=== PATIENT | male | born 1965 | race Caucasian/White ===

== ENCOUNTER 2016-07-04 07:58 | Emergency (ER) | payer OTHER ==
--- NOTE | 2016-07-04 08:52 | ED CLINICAL REPORT ---
Clinical Report - Physicians/Mid Levels [facility] [address] [address] 07/04/2016 8:03 Patient: GERMAN MCKINLEY Time Seen: 08:27. Arrived- By private vehicle. Historian- patient. HISTORY OF PRESENT ILLNESS Chief Complaint: BACK PAIN. It is described as being severe and in the area of the lower lumbar spine and right gluteus and radiating to the right hip, thigh, knee, calf and foot and right buttock. The quality is noted to be "pain". Modifying factors- worsened by rotation or bending over. Onset- several days ago and it is still present. It was gradual in onset and has been constant. No bladder dysfunction, bowel dysfunction or motor loss. Mild sensory loss involving the right foot (old). Patient notes an injury. Mechanism of injury- he was lifting (Mr. Mckinley states that he is moving.). Occurred at home. No other injury. Similar symptoms previously: ( Prior L and I injury many years ago.). Recent medical care: Not recently seen/assessed. REVIEW OF SYSTEMS No fever, chills, cough, difficulty breathing or chest pain. No abdominal pain. PAST HISTORY PCP: None Illness: Back pain, Ops: None Hosp: None. ADDITIONAL NOTES The nursing notes have been reviewed. PHYSICAL EXAM Vital Signs: 07/04/2016 08:51 Pain level now: 06/28. 07/04/2016 08:50 BP: 122/83. HR: 78. RR: 14. O2 saturation: 99%. Temp: 98.2 F. 07/04/2016 08:09 BP: 119/83. HR: 100. RR: 18. O2 saturation: 99%. Temp: 97.9 F. Pain level now: 10. Appearance: Alert. Patient in moderate distress. (Sits quite stiffly). HEENT: Normal external inspection. ENT: Pharynx normal. Respiratory: No respiratory distress. Breath sounds normal. Abdomen: Soft and nontender. Back: No vertebral point tenderness or soft tissue tenderness. Extremities: Extremities exhibit normal ROM. Extremities nontender. Neuro: No alteration in mental status. No motor deficit. Sensory deficit present. (quite mild. Not new). Altered sensation to light touch on the right leg. Straight leg raising: positive on the right at 45 degrees and negative on the left. Reflex exam: right patellar 2+, left patellar 2+, right Achilles 1+ and left Achilles 1+. No Babinski reflex. PROGRESS AND PROCEDURES Course of Care: This could be an HNP. There is no neurosurgical emergency. The first job is pain control and establishing primary care. Disposition: Discharged. CLINICAL IMPRESSION Lumbar strain. Possible acute right sided lumbar radiculopathy. INSTRUCTIONS No driving or operating machinery. (ESTABLISH PRIMARY CARE). Prescription Medications: Hydrocodone/APAP 5mg / 325mg: take 1-2 orally every 4 hours as needed for pain. Dispense twenty (20). No refill. Ibuprofen. Dispense thirty (30). (600 MG THREE TIMES A DAY.) Robaxin 750 mg: take 1-2 orally every 6 hours as needed for muscle spasm or pain. Dispense thirty (30). No refill. Substitution is permissible. Understanding of the discharge instructions verbalized by patient. Follow-up with: [facility], , , [address], , [place], [address] Follow up. Call for an appointment. Reason for referral: ESTABLISH PRIMARY CARE. (Electronically signed by Grady Reyes MD 07/05/2016 13:22)
--- NOTE | 2016-07-04 08:52 | ED ORDER SUMMARY ---
..... Patient: GERMAN MCKINLEY OrderSheet [facility] VisitID: [id number] [address] [place] [address] 50y, M Registration Date/Time: 07/04/2016 ORDER SHEET Weight: 90.7 kg (stated) Allergies: None GENERAL ORDERS: MEDICATION ORDERS: Hydrocodone-APAP PO 5/325 mg 2 TABS (NOW) (08:44 07/04/2016 Radha MARQUIS) (Ack 8:45 JBoardley R.N.) (8:50 JBoardley R.N.) Valium PO 5 mg (NOW) (08:44 07/04/2016 Radha MARQUIS) (Ack 8:45 JBoardley R.N.) (8:50 JBoardley R.N.) IV FLUIDS: ORDER SHEET NOTES: [Electronically signed by Micheal Anders R.N. (08:56 07/04/2016)] [Electronically signed by Grady Reyes MD (13:22 07/05/2016)] [Electronically locked/signed by Micheal Anders R.N. (08:56 07/04/2016)]
--- NOTE | 2016-07-04 08:52 | ED NURSING NOTES ---
Clinical Report - Nurses [facility] [address] [place] [address] 07/04/2016 8:03 [id number] TRI[facility] Triage time 08:09. Acuity: LEVEL 4. Chief Complaint: BACK PAIN. 08:10 07/04/16. 08:10 07/04/16. Alert. ( Pt states he has an exacerbation of his back pain from an injury 5 years ago.). SEPSIS SCREEN: Sepsis Screen. Negative (no infection suspected/documented). LENA COMA SCORE: [place] Coma Scale: 15- eyes open spontaneously (4); best verbal response- oriented x 4 (5); best motor response- obeys commands (6). --08:12 Micheal Anders R.N. 08:09 07/04/16. BP: 119/83. HR: 100. RR: 18. O2 saturation: 99% on room air. Temp: 97.9 F. Pain level now: 10/29. --08:12 Micheal Anders R.N. Weight: 90.7 kg stated. Height/Length: 70 inches Per Patient. BMI: 28.7. --08:10 Micheal Anders R.N. Medications None. --08:11 Micheal Anders R.N. Allergies None. --08:11 Micheal Anders R.N. History Arrived by private vehicle. Historian: patient. Unaccompanied. Primary physician (NONE). 08:10 07/04/16. No history of recent trauma. 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 PAST MEDICAL HX: Tetanus status: up-to-date. Immunizations: up-to-date. SOCIAL HX: Current every day light tobacco smoker (cigarette)- less than 1/2 a pack per day. Occasional alcohol use. No drug use. No infectious disease exposure. ABUSE ASSESSMENT: No report of abuse. FALL RISK ASSESSMENT: Fall risk assessment completed. No fall risk identified. NUTRITIONAL RISK ASSESSMENT: The nutritional risk assessment revealed no deficiencies. FUNCTIONAL ASSESSMENT: Functional assessment: no impairments noted. LEARNING NEEDS ASSESSMENT: The learning needs assessment revealed no barriers. SKIN INTEGRITY ASSESSMENT: Skin integrity risk assessment completed. No skin integrity risk identified. --08:12 Micheal Anders R.N. PROBLEMS: Back Pain. --08:12 Micheal Anders R.N. ADDITIONAL SURGERIES: no known surgeries. Assessment 08:10 07/04/16. --08:12 Micheal Anders R.N. Interventions 08:10 07/04/16. 08:07/04/16. ID and allergy band on patient. To treatment room. --08:12 Micheal Anders R.N. PHYSICAL ASSESSMENT 08:12 07/04/16. Ambulatory to room. GENERAL / NEURO / PSYCH: Alert. Oriented X 4. Appears in pain. RESPIRATORY: Respirations not labored. CVS: Capillary refill less than 2 seconds. BACK: Vertebral point tenderness over the lumbar spine. --08:12 Micheal Anders R.N. late entry -08:12. GI / : Patient is not incontinent of urine. Patient is not incontinent of stool. --08:40 Micheal Anders R.N. NURSING PROGRESS NOTES 08:13 07/04/16. The plan of care for this patient has been created. Head of bed elevated. Reassurance given. Two patient identifiers checked. Call light placed in reach. Side rails up x 2. Bed placed in lowest position. Brakes of bed on. --08:13 Micheal Anders R.N. 08:13 07/04/16. Patient ready for evaluation- chart flagged and notification provided. --08:13 Micheal Anders R.N. 08:45 07/04/2016 Hydrocodone-APAP (Hydrocodone-Acetaminophen) PO 5/325 mg Tablets 2 tab given. Allergies verified, confirmed 5 rights and sedative warning given to the patient. --08:50 Micheal Anders R.N. 08:45 07/04/2016 Valium (Diazepam) PO 5 mg given. Allergies verified, confirmed 5 rights and sedative warning given to the patient. --08:50 Micheal Anders R.N. 08:56 07/04/16. ( Head Of Business Development here, driving pt home). --08:56 Micheal Anders R.N. DISPOSITION / DISCHARGE 08:50 07/04/16. Condition at departure: improved. The goals identified in the patient's plan of care were met. No learning barriers present. Discharge instructions provided and reviewed with the patient. Reviewed warnings. Reviewed medication(s). Treatments reviewed. Patient verbalized understanding. Written instructions provided in [place]. The patient was discharged by the physician. He was discharged home and accompanied by family and barge master. He left the Emergency Department ambulatory and via private vehicle. Head Of Business Development driving. FALL RISK ASSESSMENT: Fall risk assessment completed. No fall risk identified. --08:51 Micheal Anders R.N. 08:50 07/04/16. BP: 122/83. HR: 78. RR: 14. O2 saturation: 99% on room air. Temp: 98.2 F (oral). --08:51 Micheal Anders R.N. 08:51 07/04/16. Pain level now: 5/10. --08:51 Micheal Anders R.N. Departure time: 08:51. --08:52 Micheal Anders R.N. Locked/Released at 07/04/2016 8:56 by Micheal Anders R.N.
--- NOTE | 2016-07-04 08:52 | ED CLINICAL REPORT ---
Clinical Report - Physicians/Mid Levels [facility] [address] [place] [address] 07/04/2016 8:03 Patient: GERMAN MCKINLEY Time Seen: 08:27. Arrived- By private vehicle. Historian- patient. HISTORY OF PRESENT ILLNESS Chief Complaint: BACK PAIN. It is described as being severe and in the area of the lower lumbar spine and right gluteus and radiating to the right hip, thigh, knee, calf and foot and right buttock. The quality is noted to be "pain". Modifying factors- worsened by rotation or bending over. Onset- several days ago and it is still present. It was gradual in onset and has been constant. No bladder dysfunction, bowel dysfunction or motor loss. Mild sensory loss involving the right foot (old). Patient notes an injury. Mechanism of injury- he was lifting (Mr. Mckinley states that he is moving.). Occurred at home. No other injury. Similar symptoms previously: ( Prior L and I injury many years ago.). Recent medical care: Not recently seen/assessed. REVIEW OF SYSTEMS No fever, chills, cough, difficulty breathing or chest pain. No abdominal pain. PAST HISTORY PCP: None Illness: Back pain, Ops: None Hosp: None. ADDITIONAL NOTES The nursing notes have been reviewed. PHYSICAL EXAM Vital Signs: 07/04/2016 08:51 Pain level now: 06/28. 07/04/2016 08:50 BP: 122/83. HR: 78. RR: 14. O2 saturation: 99%. Temp: 98.2 F. 07/04/2016 08:09 BP: 119/83. HR: 100. RR: 18. O2 saturation: 99%. Temp: 97.9 F. Pain level now: 10. Appearance: Alert. Patient in moderate distress. (Sits quite stiffly). HEENT: Normal external inspection. ENT: Pharynx normal. Respiratory: No respiratory distress. Breath sounds normal. Abdomen: Soft and nontender. Back: No vertebral point tenderness or soft tissue tenderness. Extremities: Extremities exhibit normal ROM. Extremities nontender. Neuro: No alteration in mental status. No motor deficit. Sensory deficit present. (quite mild. Not new). Altered sensation to light touch on the right leg. Straight leg raising: positive on the right at 45 degrees and negative on the left. Reflex exam: right patellar 2+, left patellar 2+, right Achilles 1+ and left Achilles 1+. No Babinski reflex. PROGRESS AND PROCEDURES Course of Care: This could be an HNP. There is no neurosurgical emergency. The first job is pain control and establishing primary care. Disposition: Discharged. CLINICAL IMPRESSION Lumbar strain. Possible acute right sided lumbar radiculopathy. INSTRUCTIONS No driving or operating machinery. (ESTABLISH PRIMARY CARE). Prescription Medications: Hydrocodone/APAP 5mg / 325mg: take 1-2 orally every 4 hours as needed for pain. Dispense twenty (20). No refill. Ibuprofen. Dispense thirty (30). (600 MG THREE TIMES A DAY.) Robaxin 750 mg: take 1-2 orally every 6 hours as needed for muscle spasm or pain. Dispense thirty (30). No refill. Substitution is permissible. Understanding of the discharge instructions verbalized by patient. Follow-up with: [facility], , , [address], , [place], [address] Follow up. Call for an appointment. Reason for referral: ESTABLISH PRIMARY CARE. (Electronically signed by Grady Reyes MD 07/05/2016 13:22)
--- NOTE | 2016-07-04 08:52 | ED NURSING NOTES ---
Clinical Report - Nurses [facility] [address] [place] [address] 07/04/2016 8:03 [id number] TRI[facility] Triage time 08:09. Acuity: LEVEL 4. Chief Complaint: BACK PAIN. 08:10 07/04/16. 08:10 07/04/16. Alert. ( Pt states he has an exacerbation of his back pain from an injury 5 years ago.). SEPSIS SCREEN: Sepsis Screen. Negative (no infection suspected/documented). LENA COMA SCORE: [place] Coma Scale: 15- eyes open spontaneously (4); best verbal response- oriented x 4 (5); best motor response- obeys commands (6). --08:12 Micheal Anders R.N. 08:09 07/04/16. BP: 119/83. HR: 100. RR: 18. O2 saturation: 99% on room air. Temp: 97.9 F. Pain level now: 10/29. --08:12 Micheal Anders R.N. Weight: 90.7 kg stated. Height/Length: 70 inches Per Patient. BMI: 28.7. --08:10 Micheal Anders R.N. Medications None. --08:11 Micheal Anders R.N. Allergies None. --08:11 Micheal Anders R.N. History Arrived by private vehicle. Historian: patient. Unaccompanied. Primary physician (NONE). 08:10 07/04/16. No history of recent trauma. 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 PAST MEDICAL HX: Tetanus status: up-to-date. Immunizations: up-to-date. SOCIAL HX: Current every day light tobacco smoker (cigarette)- less than 1/2 a pack per day. Occasional alcohol use. No drug use. No infectious disease exposure. ABUSE ASSESSMENT: No report of abuse. FALL RISK ASSESSMENT: Fall risk assessment completed. No fall risk identified. NUTRITIONAL RISK ASSESSMENT: The nutritional risk assessment revealed no deficiencies. FUNCTIONAL ASSESSMENT: Functional assessment: no impairments noted. LEARNING NEEDS ASSESSMENT: The learning needs assessment revealed no barriers. SKIN INTEGRITY ASSESSMENT: Skin integrity risk assessment completed. No skin integrity risk identified. --08:12 Micheal Anders R.N. PROBLEMS: Back Pain. --08:12 Micheal Anders R.N. ADDITIONAL SURGERIES: no known surgeries. Assessment 08:10 07/04/16. --08:12 Micheal Anders R.N. Interventions 08:10 07/04/16. 08:07/04/16. ID and allergy band on patient. To treatment room. --08:12 Micheal Anders R.N. PHYSICAL ASSESSMENT 08:12 07/04/16. Ambulatory to room. GENERAL / NEURO / PSYCH: Alert. Oriented X 4. Appears in pain. RESPIRATORY: Respirations not labored. CVS: Capillary refill less than 2 seconds. BACK: Vertebral point tenderness over the lumbar spine. --08:12 Micheal Anders R.N. late entry -08:12. GI / : Patient is not incontinent of urine. Patient is not incontinent of stool. --08:40 Micheal Anders R.N. NURSING PROGRESS NOTES 08:13 07/04/16. The plan of care for this patient has been created. Head of bed elevated. Reassurance given. Two patient identifiers checked. Call light placed in reach. Side rails up x 2. Bed placed in lowest position. Brakes of bed on. --08:13 Micheal Anders R.N. 08:13 07/04/16. Patient ready for evaluation- chart flagged and notification provided. --08:13 Micheal Anders R.N. 08:45 07/04/2016 Hydrocodone-APAP (Hydrocodone-Acetaminophen) PO 5/325 mg Tablets 2 tab given. Allergies verified, confirmed 5 rights and sedative warning given to the patient. --08:50 Micheal Anders R.N. 08:45 07/04/2016 Valium (Diazepam) PO 5 mg given. Allergies verified, confirmed 5 rights and sedative warning given to the patient. --08:50 Micheal Anders R.N. 08:56 07/04/16. ( Component Prep Operator here, driving pt home). --08:56 Micheal Anders R.N. DISPOSITION / DISCHARGE 08:50 07/04/16. Condition at departure: improved. The goals identified in the patient's plan of care were met. No learning barriers present. Discharge instructions provided and reviewed with the patient. Reviewed warnings. Reviewed medication(s). Treatments reviewed. Patient verbalized understanding. Written instructions provided in [place]. The patient was discharged by the physician. He was discharged home and accompanied by family and seaweed harvester. He left the Emergency Department ambulatory and via private vehicle. Component Prep Operator driving. FALL RISK ASSESSMENT: Fall risk assessment completed. No fall risk identified. --08:51 Micheal Anders R.N. 08:50 07/04/16. BP: 122/83. HR: 78. RR: 14. O2 saturation: 99% on room air. Temp: 98.2 F (oral). --08:51 Micheal Anders R.N. 08:51 07/04/16. Pain level now: 5/10. --08:51 Micheal Anders R.N. Departure time: 08:51. --08:52 Micheal Anders R.N. Locked/Released at 07/04/2016 8:56 by Micheal Anders R.N.
--- NOTE | 2016-07-04 08:52 | ED ORDER SUMMARY ---
..... Patient: GERMAN MCKINLEY OrderSheet [facility] VisitID: [id number] [address] [place] [address] 50y, M Registration Date/Time: 07/04/2016 ORDER SHEET Weight: 90.7 kg (stated) Allergies: None GENERAL ORDERS: MEDICATION ORDERS: Hydrocodone-APAP PO 5/325 mg 2 TABS (NOW) (08:44 07/04/2016 Radha MARQUIS) (Ack 8:45 JBoardley R.N.) (8:50 JBoardley R.N.) Valium PO 5 mg (NOW) (08:44 07/04/2016 Radha MARQUIS) (Ack 8:45 JBoardley R.N.) (8:50 JBoardley R.N.) IV FLUIDS: ORDER SHEET NOTES: [Electronically signed by Micheal Anders R.N. (08:56 07/04/2016)] [Electronically signed by Grady Reyes MD (13:22 07/05/2016)] [Electronically locked/signed by Micheal Anders R.N. (08:56 07/04/2016)]
--- NOTE | 2016-07-05 13:22 | ED MED RECONCILIATION SUMMARY ---
Patient: GERMAN MCKINLEY Medication Reconciliation Report [facility] VisitID: [id number] [address] [place] [address] 50y, M Registration Date/Time: 07/04/2016 Weight: 90.7 kg Height/Length: 70 in. BMI: 28.7 ALLERGIES: None The patient's Home Medications are listed below: NONE. The source(s) of the original Home Medication information: Not obtained. The following Medications were given to the patient in the Emergency Department: Hydrocodone-APAP [PO] PO 2 tab, administered: 07/04/2016 8:45:00 AM Valium [PO] PO 5 mg, administered: 07/04/2016 8:45:00 AM The following Medications were prescribed to the patient: Hydrocodone/APAP 5mg / 325mg: take 1-2 orally every 4 hours as needed for pain. Dispense twenty (20). No refill. -- Grady Reyes MD Ibuprofen. Dispense thirty (30).(600 MG THREE TIMES A DAY.) -- Grady Reyes MD Robaxin 750 mg: take 1-2 orally every 6 hours as needed for muscle spasm or pain. Dispense thirty (30). No refill. Substitution is permissible. -- Grady Reyes MD
--- NOTE | 2016-07-05 13:22 | ED MAR SUMMARY ---
..... Medication Administration Record [facility] [address] [place] [address] Patient: GERMAN MCKINLEY Visit ID: [id number] 50y, M Weight: 90.7 kg Height/Length: 70 in BMI: 28.7 ALLERGIES: None Given 08:07/04/2016 Micheal Anders R.N. Medication Administered: HYDROCODONE-APAP [PO] (HYDROCODONE-ACETAMINOPHEN), Dose: 2 tab 5/325 mg Tablets PO. Medication Ordered: Hydrocodone-APAP PO 5/325 mg 2 TABS (NOW). Given 08:07/04/2016 Micheal Anders R.N. Medication Administered: VALIUM [PO] (DIAZEPAM), Dose: 5 mg PO. Medication Ordered: Valium PO 5 mg (NOW).
--- NOTE | 2016-07-05 13:22 | ED DISCHARGE INSTRUCTIONS ---
Patient: GERMAN MCKINLEY General Instructions [facility] VisitID: [id number] [address] [place] [address] 50y, M Registration Date/Time: 07/04/2016 Lumbar strain. INSTRUCTIONS No driving or operating machinery. ([facility]). Prescription Medications: Hydrocodone/APAP 5mg / 325mg: take 1-2 orally every 4 hours as needed for pain. Dispense twenty (20). No refill. Ibuprofen. Dispense thirty (30). (600 MG THREE TIMES A DAY.) Robaxin 750 mg: take 1-2 orally every 6 hours as needed for muscle spasm or pain. Dispense thirty (30). No refill. Substitution is permissible. Understanding of the discharge instructions verbalized by patient. Follow-up with: [facility], , , [address], [place], [id number] Follow up. Call for an appointment. Reason for referral: [facility] PRIMARY CARE. ADDITIONAL INFORMATION Sciatica Sciatica ("Lumbar Radiculopathy") causes a pain that spreads from the lower back down into the buttock, hip and leg. Sometimes leg pain can occur without any back pain. Sciatica is due to irritation or pressure on a spinal nerve as it comes out of the spinal canal. This is most often due to a bulge or rupture of a nearby spinal disk (the cartilage cushion between each spinal bone), which presses on a nearby nerve. Other causes include spinal stenosis (narrowing of the spinal canal) and spasm of the pyriform muscle (a muscle in the buttocks that the sciatic nerve passes through). Sciatica may begin after a sudden twisting/bending force (such as in a car accident), or sometimes after a simple awkward movement. In either case, muscle spasm is commonly present and contributes to the pain. The diagnosis of sciatica is made from the symptoms and physical exam. Unless you had a physical injury (such as a car accident or fall), X-rays are usually not ordered for the initial evaluation of sciatica because the nerves and disks cannot be seen on an x-ray. If signs of a compressed nerve are present (for example, loss of tendon reflex or strength in the leg), an MRI (magnetic resonance imaging) scan will need to be scheduled as an outpatient. Most sciatica (80-90%) gets better with medicine, exercise, physical therapy. If symptoms continue after at least three months of medical treatment, surgery may be considered. Home Care: You may need to stay in bed the first few days. But, as soon as possible, begin sitting or walking to avoid problems with prolonged bed rest. When in bed, try to find a position of comfort. A firm mattress is best. Try lying flat on your back with pillows under your knees. You can also try lying on your side with your knees bent up towards your chest and a pillow between your knees. Avoid prolonged sitting. This puts more stress on the lower back than standing or walking. Some persons find relief with heat (hot shower, hot bath or heating pad) and massage, while others prefer cold packs (crushed or cubed ice in a plastic bag, wrapped in a towel). Try both and use the method that feels best for 20 minutes several times a day. You may use acetaminophen (Tylenol) or ibuprofen (Motrin, Advil) to control pain, unless another pain medicine was prescribed. [ NOTE: If you have chronic liver or kidney disease or ever had a stomach ulcer or GI bleeding, talk with your doctor before using these medicines.] Be aware of safe lifting methods and do not lift anything over 15 pounds until all the pain is gone. Follow Up with your doctor or this facility if your symptoms do not start to improve after one week. Physical therapy or further testing may be needed. [NOTE: If X-rays were taken, they will be reviewed by a radiologist. You will be notified of any new findings that may affect your care.] Get Prompt Medical Attention if any of the following occur: Pain becomes worse, not controlled by the prescribed medicine Weakness or numbness in one or both legs Numbness in the groin, genital area Loss of bowel or bladder control Hydrocodone Bitartrate, Acetaminophen Oral tablet What is this medicine? ACETAMINOPHEN; HYDROCODONE (a set a AAYUSH francisca fen; candy droe KOE done) is a pain reliever. It is used to treat mild to moderate pain. How should I use this medicine? Take this medicine by mouth. Swallow it with a full glass of water. Follow the directions on the prescription label. If the medicine upsets your stomach, take the medicine with food or milk. Do not take more than you are told to take. Talk to your residential worker regarding the use of this medicine in children. This medicine is not approved for use in children. What side effects may I notice from receiving this medicine? Side effects that you should report to your doctor or health care transport nurse as soon as possible: allergic reactions like skin rash, itching or hives, swelling of the face, lips, or tongue breathing problems confusion feeling faint or lightheaded, falls stomach pain yellowing of the eyes or skin Side effects that usually do not require medical attention (report to your doctor or health care transport nurse if they continue or are bothersome): nausea, vomiting stomach upset What may interact with this medicine? alcohol antihistamines isoniazid medicines for depression, anxiety, or psychotic disturbances medicines for sleep muscle relaxants naltrexone narcotic medicines (opiates) for pain phenobarbital ritonavir tramadol What if I miss a dose? If you miss a dose, take it as soon as you can. If it is almost time for your next dose, take only that dose. Do not take double or extra doses. Where should I keep my medicine? Keep out of the reach of children. This medicine can be abused. Keep your medicine in a safe place to protect it from theft. Do not share this medicine with anyone. Selling or giving away this medicine is dangerous and against the law. Store at room temperature between 15 and 30 degrees C (59 and 86 degrees F). Protect from light. Keep container tightly closed. Throw away any unused medicine after the expiration date. Discard unused medicine and used packaging carefully. Pets and children can be harmed if they find used or lost packages. What should I tell my health care provider before I take this medicine? They need to know if you have any of these conditions: brain tumor Crohn's disease, inflammatory bowel disease, or ulcerative colitis drink more than 3 alcohol-containing drinks per day drug abuse or addiction head injury heart or circulation problems kidney disease or problems going to the bathroom liver disease lung disease, asthma, or breathing problems an unusual or allergic reaction to acetaminophen, hydrocodone, other opioid analgesics, other medicines, foods, dyes, or preservatives or trying to get breast-feeding What should I watch for while using this medicine? Tell your doctor or health care transport nurse if your pain does not go away, if it gets worse, or if you have new or a different type of pain. You may develop tolerance to the medicine. Tolerance means that you will need a higher dose of the medicine for pain relief. Tolerance is normal and is expected if you take the medicine for a long time. Do not suddenly stop taking your medicine because you may develop a severe reaction. Your body becomes used to the medicine. This does NOT mean you are addicted. Addiction is a behavior related to getting and using a drug for a non-medical reason. If you have pain, you have a medical reason to take pain medicine. Your doctor will tell you how much medicine to take. If your doctor wants you to stop the medicine, the dose will be slowly lowered over time to avoid any side effects. You may get drowsy or dizzy when you first start taking the medicine or change doses. Do not drive, use machinery, or do anything that may be dangerous until you know how the medicine affects you. Stand or sit up slowly. There are different types of narcotic medicines (opiates) for pain. If you take more than one type at the same time, you may have more side effects. Give your health care provider a list of all medicines you use. Your doctor will tell you how much medicine to take. Do not take more medicine than directed. Call emergency for help if you have problems breathing. The medicine will cause constipation. Try to have a bowel movement at least every 2 to 3 days. If you do not have a bowel movement for 3 days, call your doctor or health care transport nurse. Too much acetaminophen can be very dangerous. Do not take Tylenol (acetaminophen) or medicines that contain acetaminophen with this medicine. Many non-prescription medicines contain acetaminophen. Always read the labels carefully. Methocarbamol Oral tablet What is this medicine? METHOCARBAMOL (meth oh LAYNE ba mole) helps to relieve pain and stiffness in muscles caused by strains, sprains, or other injury to your muscles. How should I use this medicine? Take this medicine by mouth with a full glass of water. Follow the directions on the prescription label. Take your medicine at regular intervals. Do not take your medicine more often than directed. Talk to your residential worker regarding the use of this medicine in children. Special care may be needed. What side effects may I notice from receiving this medicine? Side effects that you should report to your doctor or health care transport nurse as soon as possible: allergic reactions like skin rash, itching or hives, swelling of the face, lips, or tongue blurred vision or changes in vision confusion fainting spells fever nausea or vomiting seizures Side effects that usually do not require medical attention (report to your doctor or health care transport nurse if they continue or are bothersome): dizziness drowsiness headache metallic taste What may interact with this medicine? alcohol or medicines that contain alcohol cholinesterase inhibitors like neostigmine, ambenonium, and pyridostigmine bromide other medicines that cause drowsiness What if I miss a dose? If you miss a dose, take it as soon as you can. If it is almost time for your next dose, take only the next dose. Do not take double or extra doses. Where should I keep my medicine? Keep out of the reach of children. Store at room temperature between 20 and 25 degrees C (68 and 77 degrees F). Keep container tightly closed. Throw away any unused medicine after the expiration date. What should I tell my health care provider before I take this medicine? They need to know if you have any of these conditions: kidney disease seizures an unusual or allergic reaction to methocarbamol, other medicines, foods, dyes, or preservatives or trying to get breast-feeding What should I watch for while using this medicine? You may get drowsy or dizzy. Do not drive, use machinery, or do anything that needs mental alertness until you know how this medicine affects you. Do not stand or sit up quickly, especially if you are an older patient. This reduces the risk of dizzy or fainting spells. Alcohol may interfere with the effect of this medicine. Avoid alcoholic drinks. You have been given the following additional information: Back Pain W/ Sciatica Hydrocodone Bitartrate, Acetaminophen Oral tablet Methocarbamol Oral tablet No driving or operating machinery. (Electronically signed by Grady Reyes MD 07/05/2016 13:22)
--- NOTE | 2016-07-05 13:22 | ED MAR SUMMARY ---
..... Medication Administration Record [facility] [address] [place] [address] Patient: GERMAN MCKINLEY Visit ID: [id number] 50y, M Weight: 90.7 kg Height/Length: 70 in BMI: 28.7 ALLERGIES: None Given 08:07/04/2016 Micheal Anders R.N. Medication Administered: HYDROCODONE-APAP [PO] (HYDROCODONE-ACETAMINOPHEN), Dose: 2 tab 5/325 mg Tablets PO. Medication Ordered: Hydrocodone-APAP PO 5/325 mg 2 TABS (NOW). Given 08:07/04/2016 Micheal Anders R.N. Medication Administered: VALIUM [PO] (DIAZEPAM), Dose: 5 mg PO. Medication Ordered: Valium PO 5 mg (NOW).
--- NOTE | 2016-07-05 13:22 | ED MED RECONCILIATION SUMMARY ---
Patient: GERMAN MCKINLEY Medication Reconciliation Report [facility] VisitID: [id number] [address] [place] [address] 50y, M Registration Date/Time: 07/04/2016 Weight: 90.7 kg Height/Length: 70 in. BMI: 28.7 ALLERGIES: None The patient's Home Medications are listed below: NONE. The source(s) of the original Home Medication information: Not obtained. The following Medications were given to the patient in the Emergency Department: Hydrocodone-APAP [PO] PO 2 tab, administered: 07/04/2016 8:45:00 AM Valium [PO] PO 5 mg, administered: 07/04/2016 8:45:00 AM The following Medications were prescribed to the patient: Hydrocodone/APAP 5mg / 325mg: take 1-2 orally every 4 hours as needed for pain. Dispense twenty (20). No refill. -- Grady Reyes MD Ibuprofen. Dispense thirty (30).(600 MG THREE TIMES A DAY.) -- Grady Reyes MD Robaxin 750 mg: take 1-2 orally every 6 hours as needed for muscle spasm or pain. Dispense thirty (30). No refill. Substitution is permissible. -- Grady Reyes MD
--- NOTE | 2016-07-05 13:22 | ED DISCHARGE INSTRUCTIONS ---
Patient: GERMAN MCKINLEY General Instructions [facility] VisitID: [id number] [address] [place] [address] 50y, M Registration Date/Time: 07/04/2016 Lumbar strain. INSTRUCTIONS No driving or operating machinery. ([facility]). Prescription Medications: Hydrocodone/APAP 5mg / 325mg: take 1-2 orally every 4 hours as needed for pain. Dispense twenty (20). No refill. Ibuprofen. Dispense thirty (30). (600 MG THREE TIMES A DAY.) Robaxin 750 mg: take 1-2 orally every 6 hours as needed for muscle spasm or pain. Dispense thirty (30). No refill. Substitution is permissible. Understanding of the discharge instructions verbalized by patient. Follow-up with: [facility], , , [address], [place], [id number] Follow up. Call for an appointment. Reason for referral: [facility] PRIMARY CARE. ADDITIONAL INFORMATION Sciatica Sciatica ("Lumbar Radiculopathy") causes a pain that spreads from the lower back down into the buttock, hip and leg. Sometimes leg pain can occur without any back pain. Sciatica is due to irritation or pressure on a spinal nerve as it comes out of the spinal canal. This is most often due to a bulge or rupture of a nearby spinal disk (the cartilage cushion between each spinal bone), which presses on a nearby nerve. Other causes include spinal stenosis (narrowing of the spinal canal) and spasm of the pyriform muscle (a muscle in the buttocks that the sciatic nerve passes through). Sciatica may begin after a sudden twisting/bending force (such as in a car accident), or sometimes after a simple awkward movement. In either case, muscle spasm is commonly present and contributes to the pain. The diagnosis of sciatica is made from the symptoms and physical exam. Unless you had a physical injury (such as a car accident or fall), X-rays are usually not ordered for the initial evaluation of sciatica because the nerves and disks cannot be seen on an x-ray. If signs of a compressed nerve are present (for example, loss of tendon reflex or strength in the leg), an MRI (magnetic resonance imaging) scan will need to be scheduled as an outpatient. Most sciatica (80-90%) gets better with medicine, exercise, physical therapy. If symptoms continue after at least three months of medical treatment, surgery may be considered. Home Care: You may need to stay in bed the first few days. But, as soon as possible, begin sitting or walking to avoid problems with prolonged bed rest. When in bed, try to find a position of comfort. A firm mattress is best. Try lying flat on your back with pillows under your knees. You can also try lying on your side with your knees bent up towards your chest and a pillow between your knees. Avoid prolonged sitting. This puts more stress on the lower back than standing or walking. Some persons find relief with heat (hot shower, hot bath or heating pad) and massage, while others prefer cold packs (crushed or cubed ice in a plastic bag, wrapped in a towel). Try both and use the method that feels best for 20 minutes several times a day. You may use acetaminophen (Tylenol) or ibuprofen (Motrin, Advil) to control pain, unless another pain medicine was prescribed. [ NOTE: If you have chronic liver or kidney disease or ever had a stomach ulcer or GI bleeding, talk with your doctor before using these medicines.] Be aware of safe lifting methods and do not lift anything over 15 pounds until all the pain is gone. Follow Up with your doctor or this facility if your symptoms do not start to improve after one week. Physical therapy or further testing may be needed. [NOTE: If X-rays were taken, they will be reviewed by a radiologist. You will be notified of any new findings that may affect your care.] Get Prompt Medical Attention if any of the following occur: Pain becomes worse, not controlled by the prescribed medicine Weakness or numbness in one or both legs Numbness in the groin, genital area Loss of bowel or bladder control Hydrocodone Bitartrate, Acetaminophen Oral tablet What is this medicine? ACETAMINOPHEN; HYDROCODONE (a set a AAYUSH francisca fen; candy droe KOE done) is a pain reliever. It is used to treat mild to moderate pain. How should I use this medicine? Take this medicine by mouth. Swallow it with a full glass of water. Follow the directions on the prescription label. If the medicine upsets your stomach, take the medicine with food or milk. Do not take more than you are told to take. Talk to your energy trading analyst regarding the use of this medicine in children. This medicine is not approved for use in children. What side effects may I notice from receiving this medicine? Side effects that you should report to your doctor or health animal care assistant as soon as possible: allergic reactions like skin rash, itching or hives, swelling of the face, lips, or tongue breathing problems confusion feeling faint or lightheaded, falls stomach pain yellowing of the eyes or skin Side effects that usually do not require medical attention (report to your doctor or health animal care assistant if they continue or are bothersome): nausea, vomiting stomach upset What may interact with this medicine? alcohol antihistamines isoniazid medicines for depression, anxiety, or psychotic disturbances medicines for sleep muscle relaxants naltrexone narcotic medicines (opiates) for pain phenobarbital ritonavir tramadol What if I miss a dose? If you miss a dose, take it as soon as you can. If it is almost time for your next dose, take only that dose. Do not take double or extra doses. Where should I keep my medicine? Keep out of the reach of children. This medicine can be abused. Keep your medicine in a safe place to protect it from theft. Do not share this medicine with anyone. Selling or giving away this medicine is dangerous and against the law. Store at room temperature between 15 and 30 degrees C (59 and 86 degrees F). Protect from light. Keep container tightly closed. Throw away any unused medicine after the expiration date. Discard unused medicine and used packaging carefully. Pets and children can be harmed if they find used or lost packages. What should I tell my health care provider before I take this medicine? They need to know if you have any of these conditions: brain tumor Crohn's disease, inflammatory bowel disease, or ulcerative colitis drink more than 3 alcohol-containing drinks per day drug abuse or addiction head injury heart or circulation problems kidney disease or problems going to the bathroom liver disease lung disease, asthma, or breathing problems an unusual or allergic reaction to acetaminophen, hydrocodone, other opioid analgesics, other medicines, foods, dyes, or preservatives or trying to get breast-feeding What should I watch for while using this medicine? Tell your doctor or health animal care assistant if your pain does not go away, if it gets worse, or if you have new or a different type of pain. You may develop tolerance to the medicine. Tolerance means that you will need a higher dose of the medicine for pain relief. Tolerance is normal and is expected if you take the medicine for a long time. Do not suddenly stop taking your medicine because you may develop a severe reaction. Your body becomes used to the medicine. This does NOT mean you are addicted. Addiction is a behavior related to getting and using a drug for a non-medical reason. If you have pain, you have a medical reason to take pain medicine. Your doctor will tell you how much medicine to take. If your doctor wants you to stop the medicine, the dose will be slowly lowered over time to avoid any side effects. You may get drowsy or dizzy when you first start taking the medicine or change doses. Do not drive, use machinery, or do anything that may be dangerous until you know how the medicine affects you. Stand or sit up slowly. There are different types of narcotic medicines (opiates) for pain. If you take more than one type at the same time, you may have more side effects. Give your health care provider a list of all medicines you use. Your doctor will tell you how much medicine to take. Do not take more medicine than directed. Call emergency for help if you have problems breathing. The medicine will cause constipation. Try to have a bowel movement at least every 2 to 3 days. If you do not have a bowel movement for 3 days, call your doctor or health animal care assistant. Too much acetaminophen can be very dangerous. Do not take Tylenol (acetaminophen) or medicines that contain acetaminophen with this medicine. Many non-prescription medicines contain acetaminophen. Always read the labels carefully. Methocarbamol Oral tablet What is this medicine? METHOCARBAMOL (meth oh LAYNE ba mole) helps to relieve pain and stiffness in muscles caused by strains, sprains, or other injury to your muscles. How should I use this medicine? Take this medicine by mouth with a full glass of water. Follow the directions on the prescription label. Take your medicine at regular intervals. Do not take your medicine more often than directed. Talk to your energy trading analyst regarding the use of this medicine in children. Special care may be needed. What side effects may I notice from receiving this medicine? Side effects that you should report to your doctor or health animal care assistant as soon as possible: allergic reactions like skin rash, itching or hives, swelling of the face, lips, or tongue blurred vision or changes in vision confusion fainting spells fever nausea or vomiting seizures Side effects that usually do not require medical attention (report to your doctor or health animal care assistant if they continue or are bothersome): dizziness drowsiness headache metallic taste What may interact with this medicine? alcohol or medicines that contain alcohol cholinesterase inhibitors like neostigmine, ambenonium, and pyridostigmine bromide other medicines that cause drowsiness What if I miss a dose? If you miss a dose, take it as soon as you can. If it is almost time for your next dose, take only the next dose. Do not take double or extra doses. Where should I keep my medicine? Keep out of the reach of children. Store at room temperature between 20 and 25 degrees C (68 and 77 degrees F). Keep container tightly closed. Throw away any unused medicine after the expiration date. What should I tell my health care provider before I take this medicine? They need to know if you have any of these conditions: kidney disease seizures an unusual or allergic reaction to methocarbamol, other medicines, foods, dyes, or preservatives or trying to get breast-feeding What should I watch for while using this medicine? You may get drowsy or dizzy. Do not drive, use machinery, or do anything that needs mental alertness until you know how this medicine affects you. Do not stand or sit up quickly, especially if you are an older patient. This reduces the risk of dizzy or fainting spells. Alcohol may interfere with the effect of this medicine. Avoid alcoholic drinks. You have been given the following additional information: Back Pain W/ Sciatica Hydrocodone Bitartrate, Acetaminophen Oral tablet Methocarbamol Oral tablet No driving or operating machinery. (Electronically signed by Grady Reyes MD 07/05/2016 13:22)
== END 2016-07-04 08:51 | disposition home or self-care (01) ==
LOC: ED SRH 07:58
DX: S39.012A Strain of muscle, fascia and tendon of lower back, initial encounter (principal); X50.0XXA Overexertion from strenuous movement or load, initial encounter; Y93.89 Activity, other specified; Y99.9 Unspecified external cause status; Y92.009 Unspecified place in unspecified non-institutional (private) residence as the place of occurrence of the external cause